=== PATIENT | female | born 1950 | race Caucasian/White ===

== ENCOUNTER → 2017-12-25 | Outpatient (CLI) | payer MEDICARE, BC, OTHER ==
[~2017-12-25] MED LIST: DOBUTamine 250 MG in DEXTROSE 5% IN WATER 250 ML IV ONE; METOPROLOL TARTRATE 5 MG/5 ML VIAL IVP ONE
--- NOTE | 2017-12-25 20:51 | ECHOS ---
STRESS ECHOCARDIOGRAM INDICATIONS: Shortness of breath. Pre-surgery. Atrial fibrillation. MEDICATIONS: BASELINE HEART RATE: 135 BASELINE BLOOD PRESSURE: 155/111 MAXIMUM HEART RATE: 200 MAXIMUM BLOOD PRESSURE: 194/94 85% MPHR: 128 100% MPHR: 151 METS: MAXIMUM STAGE REACHED: I TOTAL EXERCISE TIME: 3:13 CLINICAL INFORMATION: Preoperative assessment prior to hip surgery. History of atrial fibrillation. This is a dobutamine stress echocardiogram. The patient was in atrial fibrillation at the start of the study. Baseline heart rate 130 beats per minute. Blood pressure 155/100 mmHg. The patient received dobutamine infusion per protocol up to 10 mcg only. Her peak heart rate went up to 200 beats per minute. Twelve-lead ECG shows atrial fibrillation with occasional PVCs. Baseline 2D echo images showed preserved LV size and systolic function without any segmental wall motion abnormalities. Definity contrast had to be used. The patient was sitting through the procedure because she was unable to lie flat. With dobutamine infusion there was no ECG evidence for ischemia. Occasional PVCs and ventricular couplets were noted. The baseline 2D echo images showed normal LV size and systolic function without segmental wall motion abnormalities. At peak infusion and peak heart rate of 200 beats per minute there was excellent augmentation of overall LV contractility without development of any wall motion abnormalities. At recovery, regional global LV systolic function remained normal. IMPRESSION: Limited dobutamine stress echo on account of atrial fibrillation with RVR, but peak heart rate of 200 beats per minute was achieved. There was no ECG evidence for ischemia. Occasional PVCs and ventricular couplets were noted and no echocardiographic evidence for ischemia. This was a technically difficult study on account of the patient's body habitus and the fact that she could not lie flat and had to be sitting forward/leaning backwards during the test. Nevertheless, good echo images were achieved with Definity contrast. MMODL / IJN: [id number] /
== END | disposition home or self-care (01) ==
LOC: RADNMMAIN 09:40
PROVIDERS: ATTEND Internal Medicine Clinical Cardiac Electrophysiology
DX: I49.3 Ventricular premature depolarization (principal); I48.91 Unspecified atrial fibrillation; I50.32 Chronic diastolic (congestive) heart failure; I42.9 Cardiomyopathy, unspecified
CPT/HCPCS: C8930; J1250; Q9950; 93351